=== PATIENT | female | born 1970 | race Caucasian/White ===

== ENCOUNTER → 2017-05-06 | Outpatient (CLI) | payer BC ==
[~2017-05-06] MED LIST: AMETHIA1 TAB PO; LEXAPRO 5MG5 MG PO; NORCO 325 MG-51 TAB PO; XANAX 0.5MG0.5 MG PO
== END ==
LOC: COL.RAD 08:52
DX: R79.89 Other specified abnormal findings of blood chemistry (principal); N28.9 Disorder of kidney and ureter, unspecified

== ENCOUNTER → 2017-05-20 | Outpatient (CLI) | payer BC | LOC: MC.RAD 11:26 | DX: Z12.31 Encounter for screening mammogram for malignant neoplasm of breast (principal); N64.89 Other specified disorders of breast ==

== ENCOUNTER → 2017-05-28 | Outpatient (CLI) | payer BC | LOC: MC.RAD 07:30 | DX: R92.2 Inconclusive mammogram (principal); N64.89 Other specified disorders of breast ==

== ENCOUNTER → 2017-06-03 | Outpatient (CLI) | payer BC | LOC: COL.RAD 09:13 | DX: N28.89 Other specified disorders of kidney and ureter (principal); N13.30 Unspecified hydronephrosis; Z96.0 Presence of urogenital implants ==

== ENCOUNTER → 2017-08-31 | Outpatient (CLI) | payer BC | LOC: COL.RAD 08:22 | DX: N13.39 Other hydronephrosis (principal) | CPT/HCPCS: Q9967 ==

== ENCOUNTER → 2017-12-14 | Outpatient (CLI) | payer BC ==
[~2017-12-14] VITALS: Ht 165.1 cm; Wt 68.2 kg
[2017-12-14] VITALS (11 sets, daily range): BP systolic 85–137; BP diastolic 60–87; PULSE 75–93
[2017-12-14 09:23] LABS: PROTHROMBIN TIME 12.1 SECONDS (9.7-12.8)
== END ==
LOC: COL.RAD 08:37
PROVIDERS: Nurse Practitioner Family
DX: R79.89 Other specified abnormal findings of blood chemistry (principal); R79.0 Abnormal level of blood mineral
CPT/HCPCS: 25757

== ENCOUNTER → 2019-07-06 | Outpatient (CLI) | payer BC | LOC: MC.RAD 08:30 | DX: Z12.31 Encounter for screening mammogram for malignant neoplasm of breast (principal) ==

== ENCOUNTER → 2021-09-08 | Outpatient (CLI) | payer BC | LOC: MC.RAD 08:31 | DX: Z12.31 Encounter for screening mammogram for malignant neoplasm of breast (principal); N64.89 Other specified disorders of breast ==

== ENCOUNTER → 2021-09-12 | Outpatient (CLI) | payer BC | LOC: MC.RAD 12:45 | DX: N64.89 Other specified disorders of breast (principal) ==

== ENCOUNTER → 2022-03-09 | Outpatient (CLI) | payer BC | LOC: MC.RAD 08:34 | DX: N64.89 Other specified disorders of breast (principal) ==

== ENCOUNTER → 2022-06-12 | Outpatient (CLI) | payer BC | LOC: COL.RAD 13:14 | DX: R94.5 Abnormal results of liver function studies (principal) ==